=== PATIENT | male | born 1955 | race Caucasian/White ===

== ENCOUNTER 2022-03-17 22:25 | Observation (INO) | payer MEDICARE, OTHER ==
[~2022-03-17] VITALS: Ht 180.3 cm; Wt 90.7 kg
[~2022-03-17 22:25] MED LIST: GLUCOPHAGE XR500 MG PO; LISINOPRIL20 MG PO; SYNTHROID100 MCG PO; TOPROL XL50 MG PO; ZOCOR40 MG PO
[2022-03-17 23:31] LABS: HEMOGLOBIN 13.8 gm/dl (14.0-17.5); RED BLOOD COUNT 4.74 M/UL (4.20-5.50); WHITE BLOOD COUNT 13.9 K/UL (4.5-11.0)
[2022-03-17 23:53] LABS: BUN/CREATININE RATIO 16 (0-10)
[2022-03-18] MEDS ORDERED: MONTELUKAST SOD10 MG PO (10:28)
[2022-03-18] MEDS ORDERED: FAMOTIDINE40 MG PO (10:33)
[2022-03-18] MEDS ORDERED: HYDROXYZINE HCL25 MG PO (10:33)
== END 2022-03-18 19:09 | disposition home or self-care (01) ==
LOC: ER1 22:25 → CDU 03-18 07:29 → MED SURG 4 03-18 08:33
PROVIDERS: Physician Assistant; ADMIT Surgery
DX: K80.12 Calculus of gallbladder with acute and chronic cholecystitis without obstruction (principal); K42.9 Umbilical hernia without obstruction or gangrene; I10 Essential (primary) hypertension; E11.9 Type 2 diabetes mellitus without complications; E03.9 Hypothyroidism, unspecified; Z79.899 Other long term (current) drug therapy
CPT/HCPCS: 80053; 82550; 82553; 83690; 84484; 85025; 93005; 96361; 96374; 99285; G0378; J0690; J1100; J1170; J1200; J2001; J2405; J2704; J3010; Q9967